=== PATIENT | female | born 1975 | race Caucasian/White ===

== ENCOUNTER 2021-08-06 11:35 | Day surgery (SDC) | payer OTHER ==
[~2021-08-06] VITALS: Ht 167.6 cm; Wt 104.6 kg
[~2021-08-06 11:35] MED LIST: LORA.5
== END 2021-08-06 13:39 | disposition home or self-care (01) ==
LOC: ORSCSDS 11:35 → ORD 13:00 → ORSCSDS 13:39
PROVIDERS: Surgery
PROC: 0DJD8ZZ Inspection of Lower Intestinal Tract, Via Natural or Artificial Opening Endoscopic (ICD-10-PCS; principal; 2021-08-06 13:00)
DX: Z12.11 Encounter for screening for malignant neoplasm of colon (principal); K57.30 Diverticulosis of large intestine without perforation or abscess without bleeding; F41.8 Other specified anxiety disorders; Z87.891 Personal history of nicotine dependence; Z79.899 Other long term (current) drug therapy
CPT/HCPCS: J2704; J7120

== ENCOUNTER → 2022-10-17 | Outpatient (CLI) | payer OTHER | END | disposition home or self-care (01) | LOC: LAB SHORT 17:30 | DX: R30.0 Dysuria (principal) | CPT/HCPCS: 87086 ==

== ENCOUNTER → 2023-04-29 | Outpatient (CLI) | payer OTHER | LOC: LAB 11:01 → LAB SHORT 11:01 | DX: G44.209 Tension-type headache, unspecified, not intractable (principal); Z79.890 Hormone replacement therapy | CPT/HCPCS: 85651 ==

== ENCOUNTER → 2024-09-18 | Outpatient (CLI) | payer BC | END | disposition home or self-care (01) | LOC: LAB 11:34 → LAB SHORT 11:34 | DX: N39.0 Urinary tract infection, site not specified (principal) | CPT/HCPCS: 87077; 87086; 87186 ==

== ENCOUNTER → 2025-05-09 | Outpatient (CLI) | payer BC | LOC: LAB SHORT 08:35 → LAB 08:35 | DX: N39.0 Urinary tract infection, site not specified (principal) | CPT/HCPCS: 87077; 87086; 87186 ==